=== PATIENT | female | born 1940 | race Caucasian/White ===

== ENCOUNTER 2021-05-23 11:09 | Inpatient (IN) | payer MEDICARE ==
[~2021-05-23] VITALS: Ht 160 cm; Wt 45.1 kg
[2021-05-23 15:10] LABS: BASOPHIL 0.1 % (0-2); EOSINOPHIL 0 % (0-7); HCT 34.4 % (37.0-47.0); HGB 11.7 g/dl (12.5-16.0); LYMPHOCYTE 8.5 % (15-48); MCH 31.1 pg (25.0-31.0); MCV 91.5 fL (78.0-100.0); MONOCYTE 8.3 % (0-12); MPV 9.3 fL (6.0-9.5); NEUTROPHIL 82.6 % (41-80); NRBC 0; PLT 238 K/uL (150-400); RBC 3.76 M/uL (4.20-5.40); RDW 12.4 % (11.5-14.0); WBC 9.7 K/uL (4.0-10.5)
[2021-05-23 15:32] LABS: BUN/CREAT RATIO (CALC) 38.9 RATIO; CREATININE 0.54 mg/dL (0.51-0.95); POTASSIUM 3.8 mmol/L (3.5-5.1)
[2021-05-23 16:44] LABS: BILIRUBIN NEGATIVE (NEGATIVE); BLOOD 1+ Ery/uL (NEGATIVE); CLARITY CLEAR (CLEAR); COLOR YELLOW (YELLOW); GLUCOSE (U) NORMAL (NORMAL); LEUKOCYTES NEGATIVE Leu/uL (NEGATIVE); NITRITE NEGATIVE (NEGATIVE); PROTEIN TRACE (LOW) mg/dL (NEGATIVE); UROBILINOGEN 0.2 mg/dL (0.2-1.0)
[2021-05-23] MEDS ORDERED: VALSARTAN-HCTZ1 EAC4 PO (18:00)
[2021-05-23] MEDS ORDERED: ASCORBIC ACID500 MG PO (18:01)
[2021-05-23] MEDS ORDERED: CRESTOR5 MG PO (18:01)
[2021-05-23] MEDS ORDERED: MACRODANTIN50 MG PO (18:02)
[2021-05-23] MEDS ORDERED: ACIDOPHILUS PR0.5 MG PO (18:02)
[2021-05-23] MEDS ORDERED: SINGULAIR10 MG PO (18:03)
[2021-05-23] MEDS ORDERED: CRANBERRY PLUS1 EAC1 PO (18:04)
[2021-05-24 05:55] LABS: BASOPHIL 0.4 % (0-2); EOSINOPHIL 0.6 % (0-7); HCT 27.3 % (37.0-47.0); HGB 8.9 g/dl (12.5-16.0); MCH 30.8 pg (25.0-31.0); MCHC 32.6 g/dL (32.0-36.0); MCV 94.5 fL (78.0-100.0); MPV 9.1 fL (6.0-9.5); NEUTROPHIL 63.8 % (41-80); NRBC 0; PLT 168 K/uL (150-400); RBC 2.89 M/uL (4.20-5.40); RDW 12.6 % (11.5-14.0)
[2021-05-24 06:16] LABS: BUN/CREAT RATIO (CALC) 33.3 RATIO; CREATININE 0.48 mg/dL (0.51-0.95); POTASSIUM 3.2 mmol/L (3.5-5.1)
[2021-05-24] MEDS ORDERED: PERCOCET 5-3251 EACH PO (09:13)
[2021-05-25 06:13] LABS: BASOPHIL 0.1 % (0-2); EOSINOPHIL 0.1 % (0-7); HCT 28.2 % (37.0-47.0); HGB 9.1 g/dl (12.5-16.0); LYMPHOCYTE 12.4 % (15-48); MCH 30.3 pg (25.0-31.0); MCHC 32.3 g/dL (32.0-36.0); MONOCYTE 11.9 % (0-12); MPV 8.9 fL (6.0-9.5); NEUTROPHIL 74.9 % (41-80); NRBC 0; PLT 159 K/uL (150-400); RDW 12.3 % (11.5-14.0); WBC 8.3 K/uL (4.0-10.5)
[2021-05-25 06:27] LABS: BUN/CREAT RATIO (CALC) 22.9 RATIO; CREATININE 0.48 mg/dL (0.51-0.95); POTASSIUM 4.5 mmol/L (3.5-5.1)
--- NOTE | 2021-05-25 15:14 | NUR ---
RD visited with patient as MST score of 5: patient/dghtr present for assessment; report wt loss over extended time period, however appetite has declined with age. RD reviewed increased energy needs with s/p fx; offered information re: needs, ONS, and our EFY menu to allow for individualized choices. Dghtr pleased: patient agreeable to try ONS. order placed in HT
[2021-05-26 06:21] LABS: BASOPHIL 0.4 % (0-2); EOSINOPHIL 3.6 % (0-7); HCT 29.5 % (37.0-47.0); HGB 9.5 g/dl (12.5-16.0); LYMPHOCYTE 25.3 % (15-48); MCH 30.7 pg (25.0-31.0); MCHC 32.2 g/dL (32.0-36.0); MCV 95.5 fL (78.0-100.0); MONOCYTE 12.9 % (0-12); MPV 9.1 fL (6.0-9.5); NEUTROPHIL 57.3 % (41-80); NRBC 0; PLT 183 K/uL (150-400); RBC 3.09 M/uL (4.20-5.40); RDW 12.4 % (11.5-14.0); WBC 7.6 K/uL (4.0-10.5)
[2021-05-26 06:50] LABS: BUN/CREAT RATIO (CALC) 26.7 RATIO; CREATININE 0.45 mg/dL (0.51-0.95)
--- NOTE | 2021-05-26 13:52 | NUR ---
LATE ENTRY: MET WITH PT. ON 05/25/2021. SHE HAS REQUESTED [facility] FOR [facility] CARE. SENT REFERRAL TO [facility].
--- NOTE | 2021-05-26 13:53 | NUR ---
PT DAUGHTER JOHN, REQUESTED TO SPEAK WITH ME. MET WITH PT AND HER DAUGHTER. THEY HAVE CHANGED THEIR MIND AND WANT GOMES.. CONTACTED LIZY AT [facility]. SHE ADVISED THERE ARE NO BEDS AT THIS TIME. ADVISED PT. AND DAUGHTER, THEY NOW REQUESTS [facility]. SPOKE WITH EDWIN AND SHE ADVISED THEY WILL REVIEW THE REFERRAL. SHE DID STATE THAT SINCE PT. IS [facility], THE INSURANCE MAY NOT APPROVED FOR PT. STAY. ADVISED PT AND DAUGHTER OF THE ABOVE INFORMATION.
[2021-05-27 05:20] LABS: BASOPHIL 0.6 % (0-2); EOSINOPHIL 3.8 % (0-7); HCT 30.4 % (37.0-47.0); HGB 9.9 g/dl (12.5-16.0); LYMPHOCYTE 28.1 % (15-48); MCH 30.6 pg (25.0-31.0); MCHC 32.6 g/dL (32.0-36.0); MCV 93.8 fL (78.0-100.0); MONOCYTE 12.4 % (0-12); MPV 8.9 fL (6.0-9.5); NEUTROPHIL 54.7 % (41-80); NRBC 0; PLT 230 K/uL (150-400); RBC 3.24 M/uL (4.20-5.40); RDW 12.5 % (11.5-14.0); WBC 6.8 K/uL (4.0-10.5)
--- NOTE | 2021-05-28 11:49 | NUR ---
PATIENT LETHARGIC, SLURRED WORDS WHILE UP IN CHAIR. V/S STABLE. DAUGHTER CONCERNED, MD NOTIFIED. NARCAN 0.1ML ADMINISTERED. MD AT BEDSIDE TALKING WITH DAUGHTER AT PATIENT AT THIS TIME. NARCAN DID SEEM TO HELP, PATIENT MORE ALERT AND TALKING. PAIN MEDICATION, PERCOCET DISCONTINUED AND CHANGED TO [facility]CO
[2021-05-29] MEDS ORDERED: FEOSOL325 MG PO (11:54)
[2021-05-29] MEDS ORDERED: STIMULANT LAXA1 EACH PO (11:54)
[2021-05-29] MEDS ORDERED: DULCOLAX5 MG PO (11:54)
[2021-05-29] MEDS ORDERED: ACETAMINOPHEN325 MG PO (11:54)
[2021-05-29] MEDS ORDERED: TAB-A-VITE TA400 MC1 PO (11:54)
[2021-05-29] MEDS ORDERED: NORCO 5-325 TA1 EACH PO (11:54)
[2021-05-29] MEDS ORDERED: PROVENTIL HFA6.7 GM INH (11:54)
[2021-05-29] MEDS ORDERED: TRANSDERM-SCOP1 EACH TD (11:54)
[2021-05-29] MEDS ORDERED: REMERON15 MG PO (11:54)
[2021-05-29] MEDS ORDERED: ASPIRIN81 MG PO (11:54)
[2021-05-29] MEDS ORDERED: LAXATIVE SUPPOS10 MG PR (11:54)
[2021-05-29] MEDS ORDERED: MILK OF MA400 MG/5 M PO (11:54)
== END 2021-05-29 14:32 | DRG 482 ==
LOC: FER 11:09 → FMS 16:08
PROVIDERS: Nurse Practitioner Adult Health; Nurse Practitioner Family; Orthopaedic Surgery; ADMIT Internal Medicine
PROC: 0QS704Z Reposition Left Upper Femur with Internal Fixation Device, Open Approach (ICD-10-PCS; principal; 2021-05-24 11:00)
DX: S72.142A Displaced intertrochanteric fracture of left femur, initial encounter for closed fracture (principal); I10 Essential (primary) hypertension; E78.5 Hyperlipidemia, unspecified; D64.9 Anemia, unspecified; Z20.822 Contact with and (suspected) exposure to COVID-19; F32.9 Major depressive disorder, single episode, unspecified; E87.6 Hypokalemia; R01.1 Cardiac murmur, unspecified; J45.909 Unspecified asthma, uncomplicated; R11.0 Nausea; T40.2X5A Adverse effect of other opioids, initial encounter; I35.1 Nonrheumatic aortic (valve) insufficiency; M25.511 Pain in right shoulder; Z90.710 Acquired absence of both cervix and uterus; Z98.890 Other specified postprocedural states; Z88.2 Allergy status to sulfonamides; W19.XXXA Unspecified fall, initial encounter
CPT/HCPCS: 36415; 71045; 72192; 73501; 73600; 73620; 76000; 80048; 81001; 85025; 93005; 94010; 94640; 94760; 94762; 96374; 96375; 97110; 97116; 97162; 97166; 97530; 97530-GP; 97535; C1713; J0697; J1100; J1170; J2270; J2310; J2405; J2704; J3010; J7030; J7120; U0002

== ENCOUNTER 2022-04-11 10:19 | Emergency (ER) | payer MEDICARE ==
[~2022-04-11 10:19] MED LIST: ACETAMINOPHEN325 MG PO; ACIDOPHILUS PR0.5 MG PO; ASCORBIC ACID500 MG PO; ASPIRIN81 MG PO; CRANBERRY PLUS1 EAC1 PO; CRESTOR5 MG PO; DULCOLAX5 MG PO; FEOSOL325 MG PO; LAXATIVE SUPPOS10 MG PR; MACRODANTIN50 MG PO; MILK OF MA400 MG/5 M PO; NORCO 5-325 TA1 EACH PO; PERCOCET 5-3251 EACH PO; PROVENTIL HFA6.7 GM INH; REMERON15 MG PO; SINGULAIR10 MG PO; STIMULANT LAXA1 EACH PO; TAB-A-VITE TA400 MC1 PO; TRANSDERM-SCOP1 EACH TD; VALSARTAN-HCTZ1 EAC4 PO
[2022-04-11 11:19] LABS: BILIRUBIN NEGATIVE (NEGATIVE); BLOOD 1+ Ery/uL (NEGATIVE); CLARITY CLEAR (CLEAR); COLOR YELLOW (YELLOW); GLUCOSE (U) NORMAL (NORMAL); LEUKOCYTES NEGATIVE Leu/uL (NEGATIVE); NITRITE NEGATIVE (NEGATIVE); PROTEIN 2+ mg/dL (NEGATIVE); UROBILINOGEN 0.2 mg/dL (0.2-1.0); pH 6.5 (5.0-9.0)
[2022-04-11 11:22] LABS: BASOPHIL 0.7 % (0-2); EOSINOPHIL 0.9 % (0-7); HCT 43.8 % (37.0-47.0); HGB 14.2 g/dl (12.5-16.0); LYMPHOCYTE 26.2 % (15-48); MCH 31.4 pg (25.0-31.0); MCHC 32.4 g/dL (32.0-36.0); MCV 96.9 fL (78.0-100.0); MONOCYTE 9.3 % (0-12); MPV 8.6 fL (6.0-9.5); NEUTROPHIL 62.7 % (41-80); NRBC 0; PLT 240 K/uL (150-400); RBC 4.52 M/uL (4.20-5.40); WBC 4.3 K/uL (4.0-10.5)
[2022-04-11 11:23] LABS: AMPHETAMINES NEGATIVE (NEGATIVE); BARBITURATES NEGATIVE (NEGATIVE); ECSTASY (MDMA) NEGATIVE (NEGATIVE); MARIJUANA (THC) NEGATIVE (NEGATIVE); METHADONE NEGATIVE (NEGATIVE); OPIATES NEGATIVE (NEGATIVE); OXYCODONE NEGATIVE (NEGATIVE)
[2022-04-11 11:40] LABS: INR 0.97 (0.9-1.2); PROTHROMBIN TIME 12.6 SECONDS (11.9-13.9); PTT 31.9 SECONDS (24.9-34.6)
[2022-04-11 11:42] LABS: D-DIMER 1.88 ug/mLFEU (0.00-0.41)
[2022-04-11 12:22] LABS: CORONAVIRUS 2019 SARS-COV-2 NEGATIVE (NEGATIVE); INFLUENZA A NAA NEGATIVE (NEGATIVE)
[2022-04-11 12:35] LABS: ALBUMIN 4.1 g/dL (3.4-5.0); ALKALINE PHOSHATASE 105 U/L (46-116); ALT 20 U/L (14-59); AST 25 U/L (15-37); BILIRUBIN - TOTAL 0.6 mg/dL (0.2-1.0); BUN 17 mg/dL (7-18); CHLORIDE 97 mmol/L (98-107); CO2 (BICARBONATE) 28 mmol/L (21-32); CREATININE 0.61 mg/dL (0.51-0.95); GLOBULIN (CALCULATION) 3.5 g/dL; GLUCOSE 98 mg/dL (74-106); POTASSIUM 4.1 mmol/L (3.5-5.1); TOTAL PROTEIN 7.6 g/dL (6.4-8.2)
[2022-04-11 12:38] LABS: ACETAMINOPHEN (TYLENOL) < 2.0 ug/mL (10.0-30.0)
[2022-04-11] MEDS ORDERED: VALSARTAN-HCTZ1 EAC4 PO (15:11)
== END 2022-04-11 15:28 | disposition home or self-care (01) ==
LOC: FER 10:19
PROVIDERS: Internal Medicine
DX: G91.0 Communicating hydrocephalus (principal); R53.1 Weakness; R31.29 Other microscopic hematuria; R91.1 Solitary pulmonary nodule; I10 Essential (primary) hypertension; J44.9 Chronic obstructive pulmonary disease, unspecified; Z88.6 Allergy status to analgesic agent; Z79.899 Other long term (current) drug therapy; Z20.822 Contact with and (suspected) exposure to COVID-19
CPT/HCPCS: 36415; 70450; 71275; 80053; 80305; 81001; 82140; 83880; 84145; 84484; 85025; 85379; 85610; 85730; 86140; 93005; G0480; Q9967; U0002